=== PATIENT | female | born 1950 | race Caucasian/White ===

== ENCOUNTER 2019-10-01 15:53 | Emergency (ER) | payer OTHER, BC ==
--- NOTE | 2019-10-01 16:25 | RAD REPORT ---
EXAM DESCRIPTION: CT - Facial Bones W/ Mpr - 10/01/2019 4:14 pm CLINICAL HISTORY: Facial injury status post fall. Facial pain COMPARISON: none TECHNIQUE: Computed axial tomography of the face was obtained. Coronal and sagittal reconstruction w as performed. All CT scans are performed using dose optimization technique as appropriate and may include automated exposure control or mA/KV adjustment according to patient size. FINDINGS: Mildly depressed nasal bone fracture A TMJ dislocation is not noted. The globes are intact. Fluid within the sinuses is not seen. IMPRESSION: Negative for a facial fracture.
--- NOTE | 2019-10-01 16:29 | RAD REPORT ---
EXAM DESCRIPTION: CT - Head C Spine Mpr Wo Con - 10/01/2019 4:14 pm CLINICAL HISTORY: Head and neck injury status post fall. Head and neck pain COMPARISON: None. TECHNIQUE: Computed axial tomography of the head and cervical spine was obtained. Sagittal and coronal reconstruction was performed. All CT scans are performed using dose optimization technique as appropriate and may include automated exposure control or mA/KV adjustment according to patient size. FINDINGS: Left frontal scalp swelling. No underlying skull fracture. An intracranial bleed is not seen. The ventricles are normal in caliber. An extra-axial fluid collect ion is not noted.Fluid within the visualized sinuses and mastoids is not seen A cervical fracture is not visualized. No dislocation is noted. IMPRESSION: No acute intracranial abnormality is seen. A cervical fracture is not visualized. If the patient continues to have symptoms to suggest intracra nial /spinal cord pathology then MRI would be recommended
--- NOTE | 2019-10-01 16:52 | ER ---
Nurse's Notes [facility] Name: Jud Olmedo Age: 69 yrs Sex: Female : 1950 Arrival Date: 10/01/2019 Time: 16:05 Bed 4 Private MD: Diagnosis: Fracture of nasal bones;Concussion without loss of consciousness Presentation: 09/30 15:54 Chief complaint: EMS states: Pt. is 69 yr. old, A \T\ O x 4, Fell over a toy and hit her rb1 left eye, denies LOC. Remembers the whole incident. Currently taking Xarelto. When EMS arrived, she was sitting against the wall. BS 117, T 97.9. Nose is swollen and bridge of nose is tender to the touch. 18 G R AC. Care prior to arrival: IV initiated. 18 GA, in the right antecubital area. Mechanism of Injury: Fall from standing position. 15:54 Acuity: MANNY 3 rb1 15:54 Method Of Arrival: EMS: [facility] 15:54 Coronavirus screen: The patient has NOT traveled to [place] in the past 14 days. The [facility] has NOT had contact with known and/or suspected case of Coronavirus. Ebola Screen: Patient negative for fever greater than or equal to 101.5 degrees Fahrenheit, and additional compatible Ebola Virus Disease symptoms. Initial Sepsis Screen: Does the patient meet any 2 criteria? No. Patient's initial sepsis screen is negative. Does the patient have a suspected source of infection? No. Patient's initial sepsis screen is negative. Risk Assessment: Do you want to hurt yourself or someone else? Patient reports no desire to harm self or others. 15:54 Trauma event details: Injury occurred in the [facility], [facility] occurred: [facility]. Injury occurred: October 01, 2019 Injury occurred at: 15:20. 15:54 Onset of symptoms was October 01, 2019 at 15:20. [facility] Tra[facility] Activation: Alert Physician: ED Physician; Name: Jean; Notified At: 15:52; Arrived At: 15:52 Physician: General Surgeon; Name: ; Notified At: 15:52; Arrived At: 15:52 Physician: Radiology; Name: JerrodJavier; Notified At: 15:52; Arrived At: 15:53 Physician: Respiratory; Name: ; Notified At: 15:52; Arrived At: Physician: Lab; Name: ; Notified At: 15:52; Arrived At: Historical: - Allergies: 15:54 No Known Allergies; rb1 - Home Meds: 15:54 Metoprolol Tartrate Oral [Active]; Xarelto oral oral [Active]; levothyroxine oral rb1 [Active]; - PMHx: 15:54 Hypothyroidism; A-Fib; rb1 - PSHx: 15:54 Hysterectomy; rb1 - Social history:: Smoking status: Patient/guardian denies using. - Immunization history: Last tetanus immunization: - up to date. Screenin:54 Abuse screen: Denies threats or abuse. Nutritional screening: No deficits noted. rb1 Tuberculosis screening: No symptoms or risk factors identified. 15:54 Fall Risk Fall in past 12 months (25 points). No secondary diagnosis (0 pts). IV access rb1 (20 points). Ambulatory Aid- None/Bed Rest/Nurse Assist (0 pts). Gait- Normal/Bed Rest/Wheelchair (0 pts) Mental Status- Oriented to own ability (0 pts). Total Strauss Fall Scale indicates High Risk Score (45 or more points). Fall prevention measures have been instituted. Side Rails Up X 2 Placed Close to Nursing Station 1:1 Attendant Assigned Frequent Obs/Assessments Occuring Family Present and informed to notify staff if the need to leave the bedside As available patient and family educated on Fall Prevention Program and Strategies. Primary Survey: 15:54 NO uncontrolled hemorrhage observed. A: The patient is alert. Airway: patent. rb1 Breathing/Chest: Respiratory pattern: regular, Respiratory effort: spontaneous, unlabored. Circulation: Skin color: pink, Skin temperature: warm, dry. Disability Alert. Exposure/Environment: There is no evidence of uncontrolled external bleeding. Obvious injury(ies) are noted at this time: nose is swollen A warming method has been applied: A warm blanket has been provided to the patient. 16:18 Reassessment Airway Airway Patent Breathing/Chest Respiratory pattern Regular rb1 Respiratory effort Spontaneous Unlabored Circulation Color [place] Temperature Warm Dry Disability Alert. Secondary Survey: 15:54 HEENT: Nose: swelling noted to the bridge of nose. Gastrointestinal: No deficits noted. rb1 : No signs and/or symptoms were reported regarding the genitourinary system. Musculoskeletal: Reports pain in right shoulder. Assessment: 15:54 General: Appears in no apparent distress. comfortable, Behavior is calm, cooperative. rb1 Pain: Complains of pain in head, right shoulder and nose Pain currently is 8 out of 10 on a pain scale. Neuro: Level of Consciousness is awake, alert, obeys commands, Oriented to person, place, time, situation, Reports headache occipital area, Denies blurred vision dizziness. EENT: Nares had a bloody nose before arriving to the ED, no bleeding noted at this time.. Cardiovascular: Capillary refill < 3 seconds is brisk in bilateral fingers. Respiratory: Airway is patent Respiratory effort is even, unlabored, Respiratory pattern is regular, symmetrical, Denies shortness of breath. GI: No signs and/or symptoms were reported involving the gastrointestinal system. : No signs and/or symptoms were reported regarding the genitourinary system. Derm: Skin is pink, warm \T\ dry. Musculoskeletal: Reports pain in right shoulder. Vital Signs: 15:54 BP 113 / 94; Pulse 79; Resp 17; Temp 98.2(O); Pulse Ox 100% on R/A; Weight 87.09 kg rb1 (R); Height 5 ft. 4 in. (162.56 cm) (R); Pain 8/10; 16:50 BP 118 / 70; Pulse 78; Resp 17; Pulse Ox 98% on R/A; Pain 6/10; rb1 15:54 Body Mass Index 32.96 (87.09 kg, 162.56 cm) rb1 [place] Coma Score: 15:54 Eye Response: spontaneous(4). Verbal Response: oriented(5). Motor Response: obeys rb1 commands(6). Total: 15. Trauma Score (Adult): 15:54 Eye Response: spontaneous(1); Verbal Response: oriented(1); Motor Response: obeys rb1 commands(2); Systolic BP: > 89 mm Hg(4); Respiratory Rate: 10 to 29 per min(4); [place] Score: 15; Trauma Score: 12 ED Course: 15:54 Patient has correct armband on for positive identification. Bed in low position. Call rb1 light in reach. Side rails up X2. 15:54 Arm band placed on right wrist. rb1 15:54 Patient maintains SpO2 saturation greater than 95% on room air. rb1 15:54 Thermoregulation: warm blanket given to patient. rb1 16:05 Patient arrived in ED. tw4 16:06 Gala Tobin, RN is Primary Nurse. rb1 16:10 Kendell Pena MD is Attending Physician. tw4 16:10 Triage completed. rb1 16:15 CT Head C Spine In Process Unspecified. EDMS 16:15 CT Facial Bones W/O Con In Process Unspecified. EDMS 17:09 No provider procedures requiring assistance completed. IV discontinued, intact, rb1 bleeding controlled, No redness/swelling at site. Pressure dressing applied. Administered Medications: No medications were administered Outcome: 16:51 Discharge ordered by . tw4 17:09 Discharged to home ambulatory, with family. rb1 17:09 Condition: stable 17:09 Discharge instructions given to patient, Instructed on discharge instructions, follow up and referral plans. Demonstrated understanding of instructions, follow-up care, Prescriptions given X none 17:09 Patient's length of stay was not longer than 2 hours. rb1 17:10 Patient left the ED. rb1 Signatures: Dispatcher [employer] EDGala Guardado RN RN rb1 Kendell Pena MD MD tw4 Corrections: (The following items were deleted from the chart) 16:21 15:54 BP 113 / 94; Pulse 79bpm; Resp 17bpm; Pulse Ox 100% RA; 87.09 kg Reported; Height rb1 5 ft. 4 in. Reported; BMI: 32.9; Pain 8/10; rb1
--- NOTE | 2019-10-01 16:52 | EDPHYS ---
Physician Documentation [facility] Name: Jud Olmedo Age: 69 yrs Sex: Female : 1950 Arrival Date: 10/01/2019 Time: 16:05 Bed 4 Private MD: ED Physician Kendell Pena HPI: 09/30 20:51 This 69 yrs old Female presents to ER via EMS with complaints of Fall Injury. tw4 20:51 Details of fall: The patient fell from an upright position, while walking. Onset: The tw4 symptoms/episode began/occurred just prior to arrival. Associated injuries: The patient sustained bridge of nose and apex of the nose. Severity of symptoms: At their worst the symptoms were moderate, in the emergency department the symptoms are unchanged. The patient has not experienced similar symptoms in the past. Historical: - Allergies: 15:54 No Known Allergies; rb1 - Home Meds: 15:54 Metoprolol Tartrate Oral [Active]; Xarelto oral oral [Active]; levothyroxine oral rb1 [Active]; - PMHx: 15:54 Hypothyroidism; A-Fib; rb1 - PSHx: 15:54 Hysterectomy; rb1 - Social history:: Smoking status: Patient/guardian denies using. - Immunization history: Last tetanus immunization: - up to date. ROS: 20:51 Constitutional: Negative for fever, chills, and weight loss. tw4 20:51 Cardiovascular: Negative for chest pain, palpitations, and edema, Respiratory: Negative for shortness of breath, cough, wheezing, and pleuritic chest pain, Abdomen/GI: Negative for abdominal pain, nausea, vomiting, diarrhea, and constipation, Back: Negative for injury and pain, MS/Extremity: Negative for injury and deformity, Skin: Negative for injury, rash, and discoloration, Neuro: Negative for headache, weakness, numbness, tingling, and seizure. 20:51 ENT: Positive for injury or acute deformity, nose bleed. Exam: 20:51 Constitutional: This is a well developed, well nourished patient who is awake, alert, tw4 and in no acute distress. 20:51 Chest/axilla: Normal chest wall appearance and motion. Nontender with no deformity. No lesions are appreciated. Cardiovascular: Regular rate and rhythm with a normal S1 and S2. No gallops, murmurs, or rubs. Normal PMI, no JVD. No pulse deficits. Respiratory: Lungs have equal breath sounds bilaterally, clear to auscultation and percussion. No rales, rhonchi or wheezes noted. No increased work of breathing, no retractions or nasal flaring. Abdomen/GI: Soft, non-tender, with normal bowel sounds. No distension or tympany. No guarding or rebound. No evidence of tenderness throughout. Back: No spinal tenderness. No costovertebral tenderness. Full range of motion. MS/ Extremity: Pulses equal, no cyanosis. Neurovascular intact. Full, normal range of motion. Neuro: Awake and alert, GCS 15, oriented to person, place, time, and situation. Cranial nerves II-XII grossly intact. Motor strength 5/5 in all extremities. Sensory grossly intact. Cerebellar exam normal. Normal gait. 20:51 Head/face: Noted is contusion, that is superficial, of the nose. 20:51 ENT: Nose: External nose: contusion is noted, clotted blood, in both nares. Vital Signs: 15:54 BP 113 / 94; Pulse 79; Resp 17; Temp 98.2(O); Pulse Ox 100% on R/A; Weight 87.09 kg rb1 (R); Height 5 ft. 4 in. (162.56 cm) (R); Pain 8/10; 16:50 BP 118 / 70; Pulse 78; Resp 17; Pulse Ox 98% on R/A; Pain 6/10; rb1 15:54 Body Mass Index 32.96 (87.09 kg, 162.56 cm) rb1 [place] Coma Score: 15:54 Eye Response: spontaneous(4). Verbal Response: oriented(5). Motor Response: obeys rb1 commands(6). Total: 15. Trauma Score (Adult): 15:54 Eye Response: spontaneous(1); Verbal Response: oriented(1); Motor Response: obeys rb1 commands(2); Systolic BP: > 89 mm Hg(4); Respiratory Rate: 10 to 29 per min(4); Aury Score: 15; Trauma Score: 12 MDM: 16:10 Patient medically screened. [facility] 20:51 Data reviewed: vital signs, nurses notes. Counseling: I had a detailed discussion with [facility] the patient and/or guardian regarding: the historical points, exam findings, and any diagnostic results supporting the discharge/admit diagnosis, radiology results. Special discussion: I discussed with the patient/guardian in detail that at this point there is no indication for admission to the hospital. It is understood, however, that if the symptoms persist or worsen the patient needs to return immediately for re-evaluation. 09/30 16:06 Order name: CT Head C Spine; Complete Time: 16:41 tw4 09/30 16:44 Interpretation: No acute disease. tw4 09/30 16:06 Order name: CT Facial Bones W/O Con; Complete Time: 16:41 tw4 Administered Medications: No medications were administered Disposition: 10/01/19 16:51 Discharged to Home. Impression: Fracture of nasal bones, Concussion without loss of consciousness. - Condition is Stable. - Discharge Instructions: Facial or Scalp Contusion, Nasal Fracture. - Medication Reconciliation Form, Thank You Letter, Antibiotic Education, Prescription Opioid Use form. - Follow up: Private Physician; When: Upon discharge from the Emergency Department; Reason: Recheck today's complaints, Continuance of care, Re-evaluation by your physician. - Problem is new. - Symptoms have improved. Signatures: Dispatcher [employer] EDGala Guardado RN RN rb1 Kendell Pena MD MD tw4 Corrections: (The following items were deleted from the chart) 17:10 16:51 10/01/2019 16:51 Discharged to Home. Impression: Fracture of nasal bones; rb1 Concussion without loss of consciousness. Condition is Stable. Forms are Medication Reconciliation Form, Thank You Letter, Antibiotic Education, Prescription Opioid Use. Follow up: Private Physician; When: Upon discharge from the Emergency Department; Reason: Recheck today's complaints, Continuance of care, Re-evaluation by your physician. Problem is new. Symptoms have improved. tw4
[2019-10-01 18:10] VITALS: TEMP 98.2
[2019-10-01 18:11] VITALS: BP 118/70; O2SAT 98
== END 2019-10-01 17:10 | disposition home or self-care (01) ==
LOC: ER 15:53
DX: S06.0X0A Concussion without loss of consciousness, initial encounter (principal); W19.XXXA Unspecified fall, initial encounter; Y93.01 Activity, walking, marching and hiking; Y92.9 Unspecified place or not applicable; E03.9 Hypothyroidism, unspecified; I48.91 Unspecified atrial fibrillation; Z79.01 Long term (current) use of anticoagulants
CPT/HCPCS: 70450; 70486; 72125; 76377; 99284